=== PATIENT | female | born 1995 | race Hispanic/Latino ===

== ENCOUNTER 2016-10-02 02:42 | Emergency (ER) | payer OTHER ==
[~2016-10-02] VITALS: Ht 165.1 cm; Wt 104.5 kg
[2016-10-02 02:49] VITALS: BP 129/84; RESP 18; O2SAT 98
--- NOTE | 2016-10-02 02:54 | ED.REPORT ---
HPI-Ear Pain/Problem/FB Date of Service Oct 02, 2016 ED Provider: History of Present Illness: Healthy 21 year old female sneezed a few days ago and felt immediate pain in her left ear. Tonight some drainage and increasing pain. Nursing Notes Stated Complaint: BROKEN LEFT EAR DRUM Chief Complaint: ENT & Mouth Nursing Notes Reviewed: Yes Allergies: Coded Allergies: No Known Allergies (Verified Allergy, Unknown, 10/02/16) No Active Prescriptions or Reported Meds General Time Seen by MD: 02:54 Chief Complaint Ear problem left pain Hx Obtained From: Patient Onset Occurred: 3 days ago Context of Onset: Other (sneezing) Symptom Duration: Since onset Location: : Inner ear Quality: Dull Severity: Current: Moderate Severity: Maximum: Moderate Recent Healthcare: Recent doctor visit (seen in July for diarrhea) Past Medical History Past Medical History Notes: Nexplanon Past Medical History Bladder infection Pneumonia Previous miscarriage Past Surgical History Reports: Cholecystectomy, Tonsillectomy Smoking History Never Smoker Social History Alcohol Use: >5 per day Drug Use: Denies drug use Other Social History: Good social support, Local resident Occupation lives with Mom. 06/04/2016 Ambulatory Status Independent Review of Systems Basic Review of Systems Eyes: Vision NL Respiratory: No shortness of breath Cardiovascular: No chest pain, No dyspnea on exertion GI: No abdominal pain, No anorexia, No nausea, No vomiting : No dysuria, No frequency Hematologic: No bleeding Skin: No bruising Neurologic: NL mental status (no vestibular symptoms. Hearing intact), No weakness, No numbness Physical Exam Initial Vital Signs Vital Signs (First) Date Time Temp Pulse Resp B/P Pulse Ox O2 Delivery O2 Flow Rate FiO2 10/02/16 02:49 36.2 88 18 129/84 98 Room Air Initial VS: Reviewed Head / Eyes: Atraumatic, Normocephalic, PERRL Neck: Supple, Non-tender, Full range of motion Cardiovascular: Regular rate & rhythm Abdomen / GI: Soft Lymphatic: No lymphadenopathy Extremities: Vascular intact, Neuro intact, No swelling Skin: Warm Neurologic: Alert ENT: Atraumatic Left Ear / Mastoid: Positive: Fluid behind TM purulent, Tympanic memb perforated, Tympanic membrane bulging, Tympanic membrane red Nose: Negative: Discharge nasal bloody Sinus: Negative: Tender frontal L, Tender frontal R, Tender maxillary L Re-Eval/Medical Decision Med Decision/Clinical Course Bulging left ear drum with what looks like a small perforation. Purulent effusion noted. No signs of mastoiditis Cranial nerves intact No facial palsy. No signs of meningitis. Will rx with Augmentin, oflox otic, norco and close ENT follow up. Routine opiate warnings given. Discharge & Departure Primary Impression: Otitis media Otitis media type: suppurative Laterality: left Chronicity: acute Recurrence: not specified Spontaneous tympanic membrane rupture: with spontaneous rupture Qualified Code: H66.012 - Acute suppurative otitis media with spontaneous rupture of ear drum, left ear Additional Impression: Ruptured tympanic membrane Laterality: left Qualified Code: H72.92 - Unspecified perforation of tympanic membrane, left ear Disposition: Home Patient Instructions: Otitis Media (ED), Tympanic Membrane Perforation (ED) Additional Instructions: Augmentin twice daily for 10 days. Ofloxacin otic: 10 drops to your left ear twice daily for 7 days. [place] one to 2 every 6 hours as needed for severe pain. Do not drive or drink alcohol or consume acetaminophen while taking the [place]. I recommend that you have your ear rechecked by an ear nose and throat surgeon. Sometimes the perforations need to be repaired. I would also like you to be seen in follow-up by your primary care physician or by our referral clinic. Keep your ear canal dry. Read the after care instructions given. Return if any problems or any worsening symptoms. Referrals: NOPCP (PCP) Harpal nSowden MD [facility] Wes Bender DO Oct 02, 2016 02:54
[2016-10-02] MEDS ORDERED: _HYDROcodone/APAP 5-325 mg Tablet PO PRN (03:00)
[2016-10-02] MEDS ORDERED: Amoxicillin-Clav 875-125 mg Tablet PO ONE (03:00)
[2016-10-02] MEDS ORDERED: Ofloxacin 0.3% 10 mL Otic Solution LEFT_EAR SCH ×2 (03:00→03:15)
[2016-10-02 03:30] VITALS: BP 129/84; PULSE 88; RESP 18; O2SAT 98
== END 2016-10-02 03:31 | disposition home or self-care (01) ==
LOC: SED 02:42
DX: H66.012 Acute suppurative otitis media with spontaneous rupture of ear drum, left ear (principal)

== ENCOUNTER 2016-12-14 12:24 | Emergency (ER) | payer OTHER ==
[~2016-12-14] VITALS: Ht 165.1 cm; Wt 110.9 kg
[2016-12-14 12:40] VITALS: BP 133/77; PULSE 94; RESP 12; O2SAT 96
--- NOTE | 2016-12-14 12:56 | ED.REPORT ---
HPI-NVD Date of Service December 14, 2016 ED Provider: Laura Pineda History of Present Illness: nausea, vomiting and diarrhea gets hot and cold since Sunday. Sunday had oysters. friend also ate oysters and is sick also with same symptoms. primary care is no one. normally healthy. diarrhea is multiple times, more than vomiting. no meds. Nursing Notes Stated Complaint: POSSIBLE FOOD POISONING Chief Complaint: Female Abdominal Pain Nursing Notes Reviewed: Yes Allergies: Coded Allergies: No Known Allergies (Verified Allergy, Unknown, 10/02/16) No Active Prescriptions or Reported Meds General Time Seen by MD: 12:56 Chief Complaint Nausea, Vomiting, Diarrhea Hx Obtained From: Patient Onset Occurred: 3 days ago Symptom Duration: Since onset Past Medical History Past Medical History Notes: Nexplanon Past Medical History Bladder infection Pneumonia Previous miscarriage Denies: Asthma Past Surgical History Reports: Cholecystectomy, Tonsillectomy Smoking History Never Smoker Social History Alcohol Use: 1-3 per week Drug Use: Denies drug use Other Social History: Good social support, Local resident Occupation lives with Mom. 06/04/2016 work at [employer] 12/14/2016 Ambulatory Status Independent Review of Systems Basic Review of Systems Eyes: Vision NL, No discharge : No dysuria, No frequency Allergy / Immune: No allergy Psychiatric: Normal thought content Physical Exam Initial Vital Signs Vital Signs (First) Date Time Temp Pulse Resp B/P Pulse Ox O2 Delivery O2 Flow Rate FiO2 12/14/16 12:40 36.6 94 12 133/77 96 12/14/16 15:09 Room Air Initial VS: Reviewed, Vital signs normal Head / Eyes: Atraumatic, Normocephalic, PERRL ENT: Mucous membranes moist, Conjunctiva normal, No scleral icterus Neck: Supple, Non-tender, Full range of motion Respiratory: Breath sounds normal, Clear to auscultation, No respiratory distress Cardiovascular: Regular rate & rhythm, Heart sounds normal, Intact distal pulses Back: No CVA tenderness Lymphatic: No lymphadenopathy Extremities: Vascular intact, Neuro intact, No swelling, No tenderness Skin: Warm, Dry, No cyanosis Neurologic: Alert, Oriented, Nonfocal Psychiatric: Mood/affect normal, Behavior normal, Normal thought content General/Constitutional: Awake, Alert, No acute distress, Well appearing, Well developed, Well hydrated, Well nourished, Cooperative, Not toxic appearing Abdomen: Atraumatic, Soft, Non-tender Respiratory / Chest: Atraumatic, Breath sounds NL, Breath sounds = bilat, No respiratory distress Cardiovascular: Heart rate NL, Regular rhythm, Heart sounds NL, No gallop Back: Atraumatic, Inspection NL, Full range of motion, Painless range of motion Interpretation & Diagnostics Lab Results Interpretation Result Diagram: 12/14/16 1319 12/14/16 1319 Test 12/14/16 12:56 12/14/16 13:19 Urine Color Bloody (YELLOW) Urine Appearance Hazy (CLEAR,HAZY) Urine pH 6.0 (5.0-8.0) Urine Specific [place] 1.005 (1.003-1.035) Urine Protein Tracemg/dL (NEG,TRACE) Urine Glucose (UA) Negativemg/dL (NEGATIVE) Urine Ketones Negativemg/dL (NEGATIVE) Urine Occult Blood Large (NEGATIVE) Urine Nitrite Negative (NEGATIVE) Urine Bilirubin Negative (NEGATIVE) Urine Urobilinogen Normalmg/dL (NORMAL) Urine Leukocyte Esterase Trace (NEGATIVE) Urine RBC >50/hpf (0-2) Urine WBC 0-5/hpf (0-5) Urine Epithelial Cells Occasional/hpf (NONE-MOD) Urine Crystals None seen (NONE SEEN) Urine Bacteria Few/hpf (NONE-FEW) Urine Hyaline Casts None/lpf (NONE) Urine Granular Casts None seen (NONE SEEN) Urine Waxy Casts None seen (NONE SEEN) Urine Red Blood Cell Casts None seen (NONE SEEN) Urine White Blood Cell Casts None seen (NONE SEEN) Urine Mucus None seen (None Seen) Urine Trichomonas None seen (NONE SEEN) Urine Yeast None (NONE SEEN) Urinalysis Comment None Urine Culture Reflexed Indicated White Blood Count 7.9th/mm3 (3.8-10.1) Red Blood Count 4.15mil/mm3 (3.90-5.20) Hemoglobin 12.3g/dL (12.0-15.6) Hematocrit 35.9% (35.0-46.0) Mean Corpuscular Volume 86.5fL (81-100) Mean Corpuscular Hemoglobin 29.6pg (27.0-35.0) Mean Corpuscular Hemoglobin Concent 34.3% (32.0-37.0) Red Cell Distribution Width 12.9% (12.3-15.4) Platelet Count 272bil/L (150-400) Neutrophils (%) (Auto) 69.0% (40-74) Lymphocytes (%) (Auto) 23.8% (14-46) Monocytes (%) (Auto) 5.7% (4-12) Eosinophils (%) (Auto) 1.1% (0-5) Basophils (%) (Auto) 0.3% (0-3) Sodium Level 139mEq/L (134-144) Potassium Level 3.6mEq/L (3.5-5.2) Chloride Level 103mEq/L (97-108) Carbon Dioxide Level 22mmol/L (18-29) Blood Urea Nitrogen 10mg/dL (6-20) Creatinine 0.59mg/dL (0.57-1.00) Estimat Glomerular Filtration Rate 181mL/min (>59) Glucose Level 101mg/dL (60-99) Calcium Level 8.9mg/dL (8.5-10.1) Total Bilirubin 0.3mg/dL (0.0-1.2) Aspartate Amino Transf (AST/SGOT) 29U/L (0-50) Alanine Aminotransferase (ALT/SGPT) 24U/L (0-32) Alkaline Phosphatase 99U/L (25-150) Total Protein 7.5g/dL (6.4-8.4) Albumin 4.1g/dL (3.4-5.0) Hold Lau Top Tube Received (Received) Lab Results Interpretation: unable to provide a stool sample in the ER Re-Eval/Medical Decision Med Decision/Clinical Course 21 year old female presents to the ER for evualation of nausea, vomiting and diarrhea. Patient ate oysters on Sunday with symptoms starting shortly after. Some one else at the same function ate exactly the same and is sick with the same symptoms. Labs are normal, patient reporting feeling better after fluids. No sign of dehydration or pancreatitis. Discharge & Departure Impression: Primary Impression: Nausea vomiting and diarrhea Disposition: Home Patient Instructions: Acute Diarrhea (ED), Acute Nausea and Vomiting (ED) Additional Instructions: Your labs are normal. You have an appointment at [facility] on Sunday12/16/2016 at 1 pm. Please keep the appointment. Your labs are normal. The urine looks good. The x-ray looks good. You were unable to give a stool sample while in the ER. This may mean the "food poisoning" is resolving. Can use zofran 4 mg up to 2 times a day if needed for nausea /vomiting. A side effect of this medication is constipation. Please keep the appointment as scheduled. Referrals: [facility] EDSupervising Provider for APC: Kishan Trotter DO copies to: [facility] Laura Pineda December 14, 2016 12:56
[2016-12-14] MEDS ORDERED: Ondansetron 2 mg/mL 2 mL Inj IVPUSH ONE (13:05)
[2016-12-14] MEDS ORDERED: 0.9% Sodium Chloride 1,000 ML IV ONE (13:05)
[2016-12-14] MEDS ORDERED: Ketorolac 15 mg/mL Inj IVPUSH ONE (13:05)
[2016-12-14 13:31] LABS: BASOPHILS % (AUTO) 0.3 % (0-3); EOSINOPHILS % (AUTO) 1.1 % (0-5); MONOCYTES % (AUTO) 5.7 % (4-12); Mean Corpuscular Hemoglobin 29.6 pg (27.0-35.0); Mean Corpuscular Volume 86.5 fL (81-100); Platelet Count 272 bil/L (150-400)
[2016-12-14 13:40] LABS: APPEARANCE,URINE HAZY (CLEAR,HAZY); COLOR,URINE BLOODY (YELLOW)
[2016-12-14 13:41] LABS: OCCULT BLOOD,URINE LARGE (NEGATIVE); UROBILINOGEN,URINE NORMAL (NORMAL)
[2016-12-14 15:09] VITALS: BP 103/71; PULSE 71; RESP 16; O2SAT 97
--- NOTE | 2016-12-14 15:26 | DRSVH ---
PROCEDURE: X-RAY CHEST ONE VIEW, PORTABLE ([id number]) INDICATIONS: hurts to take a deep breath TECHNIQUE: One view of the chest was acquired. COMPARISON: [facility], TANIA, CHEST 2VW, 08/04/2012, 1:00. [facility], TANIA, CH EST 2VW, 10/19/2014, 2:41. [facility], TANIA, XR CHEST 2VW, 02/07/2016, 3:26. FINDINGS: Surgical changes and devices: None. Lungs and pleura: No pleural effusions or pneumothorax. Lungs are clear. Mediastinum: Mediastinal contours appear normal. Heart size is normal. Bones and chest wall: No suspicious bony lesions. Overlying soft tissues appear unremarkable. IMPRESSION: Stable chest. No acute cardiopulmonary process is evident. Dictated by: Damaso Watts M.D. on 12/14/2016 at 14:23 Approved by: Damaso Watts M.D. on 12/14/2016 at 14:24
[2016-12-14 16:07] VITALS: BP 103/71; PULSE 71; RESP 16; O2SAT 97
== END 2016-12-14 16:07 | disposition home or self-care (01) ==
LOC: SED 12:24
DX: R11.2 Nausea with vomiting, unspecified (principal); R19.7 Diarrhea, unspecified; Z90.49 Acquired absence of other specified parts of digestive tract
CPT/HCPCS: 36415; 71010; 80053; 81000; 81025; 85025; 87086; 87088; 90791; 96361; 96374; 96375; 99285; J1885; J2405; J7030

== ENCOUNTER 2017-03-20 19:08 | Emergency (ER) | payer OTHER ==
[~2017-03-20] VITALS: Ht 165.1 cm; Wt 104.5 kg
[2017-03-20 19:35] VITALS: BP 101/68; PULSE 82; RESP 16; O2SAT 99
--- NOTE | 2017-03-20 20:01 | ED.REPORT ---
HPI- Female Date of Service Mar 20, 2017 ED Provider: Corey Ramos MD A 22 year old female with a history of UTI, cholecystectomy and previous miscarriage is referred to the ED from Urgent Care due to possible . The pt was seen in Urgent Care today complaining of cramping abdominal pain, nausea and vomiting for three weeks. At that time, she reported a positive test two weeks prior. Her last known menstrual period was nine to ten weeks ago. The pt denies vaginal bleeding or discharge. She was referred to the ED for an ultrasound to rule out an ectopic . Nursing Notes Stated Complaint: ULTRASOUND Chief Complaint: Female Abdominal Pain Nursing Notes Reviewed: Yes Allergies: Coded Allergies: No Known Allergies (Verified Allergy, Unknown, 10/02/16) No Active Prescriptions or Reported Meds General Time Seen by MD: 19:54 Chief Complaint Abdominal pain... Hx Obtained From: Patient Arrived By: Walk-in Sudden in Onset?: No Onset Occurred: More than a week ago... Symptom Duration: Since onset Recent Healthcare: No recent hospitalization, Recent doctor visit Similar Sx Previous: No Past Medical History Past Medical History Notes: Ena Ulloa as of 03/2017 Past Medical History UTI Pneumonia Previous miscarriage Past Surgical History Reports: Cholecystectomy, Tonsillectomy Smoking History Never Smoker Social History Alcohol Use: 1-3 per week Drug Use: Denies drug use Other Social History: Good social support, Local resident Occupation lives with Mom. 06/04/2016 work at [employer] 12/14/2016 Ambulatory Status Independent Review of Systems Constitutional: Denies: Fever GI: Reports: Abdominal pain, Nausea, Vomiting, Denies: Constipation, Diarrhea Female: Denies: Vaginal bleeding - abnl, Vaginal discharge Musculoskeletal: Denies: Back pain, Neck pain Skin: Denies Rash Complete sys rev & neg: except as marked. Physical Exam Initial Vital Signs Vital Signs (First) Date Time Temp Pulse Resp B/P Pulse Ox O2 Delivery O2 Flow Rate FiO2 03/20/17 19:35 37.1 82 16 101/68 99 Room Air Initial VS: Reviewed Female Genitourinary: Exam deferred General/Constitutional: Awake, Alert Respiratory / Chest: Atraumatic, Breath sounds NL, Breath sounds = bilat, No respiratory distress Cardiovascular: Heart rate NL, Regular rhythm, Heart sounds NL Abdomen: Atraumatic, Soft, Non-tender, No distention Back: Atraumatic, Full range of motion Skin: Atraumatic, Color NL, No rash, Warm, Dry Head / Eyes: Atraumatic, Normocephalic, PERRL, EOMI ENT: Atraumatic, Airway patent, Mucous membranes moist Neck: Atraumatic, Supple, Full range of motion Upper Extremity / MS: Atraumatic, Full range of motion Lower Extremity / Pelvis / MS: Atraumatic, Full range of motion Neurologic: Oriented X3, Speech NL, No motor deficits, No sensory deficits Psychiatric: Affect NL, Mood NL Interpretation & Diagnostics Interpretation & Diagnostics: Pelvis/Transvaginal US: IUP consistent with 7 week 5 day old fetus normal heart tones Lab Results Interpretation Result Diagram: 03/20/17 2106 03/20/17 2106 Test 03/20/17 21:06 03/20/17 21:28 White Blood Count 9.8th/mm3 (3.8-10.1) Red Blood Count 4.27mil/mm3 (3.90-5.20) Hemoglobin 12.5g/dL (12.0-15.6) Hematocrit 36.8% (35.0-46.0) Mean Corpuscular Volume 86.2fL (81-100) Mean Corpuscular Hemoglobin 29.3pg (27.0-35.0) Mean Corpuscular Hemoglobin Concent 34.0% (32.0-37.0) Red Cell Distribution Width 13.7% (12.3-15.4) Platelet Count 258bil/L (150-400) Sodium Level 136mEq/L (134-144) Potassium Level 3.7mEq/L (3.5-5.2) Chloride Level 101mEq/L (97-108) Carbon Dioxide Level 19mmol/L (18-29) Blood Urea Nitrogen 8mg/dL (6-20) Creatinine 0.59mg/dL (0.57-1.00) Estimat Glomerular Filtration Rate 179mL/min (>59) Glucose Level 77mg/dL (60-99) Calcium Level 8.9mg/dL (8.5-10.1) Total Bilirubin 0.2mg/dL (0.0-1.2) Aspartate Amino Transf (AST/SGOT) 36U/L (0-50) Alanine Aminotransferase (ALT/SGPT) 37U/L (0-32) Alkaline Phosphatase 116U/L (25-150) Total Protein 7.5g/dL (6.4-8.4) Albumin 4.0g/dL (3.4-5.0) HCG Beta Subunit [id number]/mL Hold Lau Top Tube Received (Received) Urine Color Straw (YELLOW) Urine Appearance Clear (CLEAR,HAZY) Urine pH 5.5 (5.0-8.0) Urine Specific [place] 1.005 (1.003-1.035) Urine Protein Negativemg/dL (NEG,TRACE) Urine Glucose (UA) Negativemg/dL (NEGATIVE) Urine Ketones Negativemg/dL (NEGATIVE) Urine Occult Blood Trace (NEGATIVE) Urine Nitrite Negative (NEGATIVE) Urine Bilirubin Negative (NEGATIVE) Urine Urobilinogen Normalmg/dL (NORMAL) Urine Leukocyte Esterase Trace (NEGATIVE) Urine RBC 0-2/hpf (0-2) Urine WBC 0-5/hpf (0-5) Urine Epithelial Cells Many/hpf (NONE-MOD) Urine Crystals None seen (NONE SEEN) Urine Bacteria Few/hpf (NONE-FEW) Urine Hyaline Casts None/lpf (NONE) Urine Granular Casts None seen (NONE SEEN) Urine Waxy Casts None seen (NONE SEEN) Urine Red Blood Cell Casts None seen (NONE SEEN) Urine White Blood Cell Casts None seen (NONE SEEN) Urine Mucus None seen (None Seen) Urine Trichomonas None seen (NONE SEEN) Urine Yeast None (NONE SEEN) Urinalysis Comment None Urine Culture Reflexed Indicated Re-Eval/Medical Decision Med Decision/Clinical Course A 22 year old female with a history of UTI, cholecystectomy and previous miscarriage is referred to the ED from Urgent Care due to possible . The pt was seen in Urgent Care today complaining of cramping abdominal pain, nausea and vomiting for three weeks. At that time, she reported a positive test two weeks prior. Her last known menstrual period was nine to ten weeks ago. The pt denies vaginal bleeding or discharge. She was referred to the ED for an ultrasound to rule out an ectopic . Here in the emergency department the patient is afebrile, hemodynamically stable and in no apparent distress. Upper studies notable as below: CBC unremarkable CMP unremarkable Beta HCG 40,029 UA shows trace leukocyte esterase Negative nitrites Few bacteria Pelvis/Transvaginal US: IUP consistent with 7 week 5 day old fetus normal heart tones Presentation is not suggestive of ectopic . Patient tolerating PO with ease. She is advised to start taking a multivitamin and has been referred to women's health for follow-up. She may take Unisom and vitamin B6 for nausea. At this time, I feel that she is appropriate for discharge. Prior to discharge follow-up and return precautions were reviewed in detail with the patient who verbalized understanding and agreement with the plan. The patient was discharged in stable condition. Source of Hx: Old records Re-Evaluation/Progress : Time of Eval: 21:26 Patient Status: Condition improved Re-Evaluation/Progress Note: Pt rechecked, who is comfortable. US results are discussed. The diagnosis and plan for discharge are discussed. The pt understands and agrees with the plan. All questions are addressed at this time. Counseled Regarding: Diagnosis, Lab results, Need for follow-up, When/why to return to ED Discharge & Departure Impression: Primary Impression: Weeks of gestation: less than 8 weeks Qualified Code: Z3A.01 - Less than 8 weeks gestation of Additional Impressions: Abdominal cramping Vomiting Vomiting type: unspecified Vomiting Intractability: unspecified Nausea presence: unspecified Qualified Code: R11.10 - Vomiting, unspecified Disposition: Home Discharge Condition All VS Reviewed: Yes Condition: Stable Patient Instructions: Acute Abdominal Pain (ED), First Trimester (ED) Additional Instructions: Thank you for seeking care at the emergency room. Our primary goal today in the Emergency Department was to evaluate you for any life-threatening conditions. Your evaluation was reassuring. Your ultrasound showed an intrauterine at 7 weeks and 5 days. You should follow-up with your primary doctor in the next week. You should return to the Emergency Department immediately if you develop vaginal bleeding, vaginal discharge, fevers, vomiting, cough, shortness of breath, chest pain, lightheadedness, weakness or any other concerning signs or symptoms. Thank you for letting us partake in your care today. Referrals: [facility] Scribe Attestation Portions of this note were transcribed by Stan Meek. I, Dr. Ramos personally performed the history, physical exam and medical decision-making; I reviewed and confirmed the accuracy of the information in the transcribed note. copies to: [facility] Corey Ramos MD Mar 20, 2017 20:01 STAN MEEK Mar 20, 2017 20:32
[2017-03-20 21:14] LABS: Mean Corpuscular Hemoglobin 29.3 pg (27.0-35.0); Mean Corpuscular Volume 86.2 fL (81-100)
[2017-03-20 21:42] LABS: APPEARANCE,URINE CLEAR (CLEAR,HAZY); COLOR,URINE STRAW (YELLOW); OCCULT BLOOD,URINE TRACE (NEGATIVE); PH,URINE 5.5 (5.0-8.0); UROBILINOGEN,URINE NORMAL (NORMAL)
[2017-03-20 22:15] VITALS: BP 124/68; PULSE 78; RESP 16; O2SAT 98
--- NOTE | 2017-03-23 14:10 | DRSVH ---
CORRECTED PROCEDURE NAME AND ACCESSION/PLACER NUMBER ON 03/23/17 PROCEDURE: US OB<14 WKS+OB TRANSVAG INDICATIONS: IUP vs ectopic, abd pain, preg TECHNIQUE: Real-time scanning was performed of the pelvic organs, with image documentation. Additional endovagi nal scanning was necessary due to incomplete visualization of the adnexal and endometrial structures by transabdominal scanning. COMPARISON: None. FINDINGS: Transabdominal scanning: Limited scanning through the kidneys shows no hydronephrosis. No pathologi c free abdominal or pelvic fluid. Endovaginal scanning: Uterus: Uterus is normal in size at 9.9 x 5.9 x 7.6 cm. The endometrium is prominent because of a g estational sac and pole. Rif[place]-rump length indicates a 7 week five-day intrauterine gestation w ith estimated date of confinement of 11/01/2017. Heart rate is 156 beats per minute. Ovaries: There is a corpus luteum cyst in the left ovary. IMPRESSION: Intrauterine gestation, viable, estimated date of confinement 11/01/17. Dictated by: Michi Ramírez M.D. on 03/20/2017 at 21:19 Approved by: Michi Ramírez M.D. on 03/20/2017 at 21:23
== END 2017-03-20 22:05 | disposition home or self-care (01) ==
LOC: SED 19:08
DX: O21.0 Mild hyperemesis gravidarum (principal); R10.9 Unspecified abdominal pain; Z3A.01 Less than 8 weeks gestation of pregnancy

== ENCOUNTER 2017-04-27 10:14 | Emergency (ER) | payer OTHER ==
[~2017-04-27] VITALS: Ht 165.1 cm; Wt 105.9 kg
[2017-04-27 10:18] VITALS: BP 110/76; RESP 16; O2SAT 98
--- NOTE | 2017-04-27 11:36 | ED.REPORT ---
HPI-Dental/Mouth Prob Date of Service Apr 27, 2017 ED Provider: David Osorio PA-C Ana is otherwise healthy 22-year-old female to emergency Department with a chief complaint of a mouth infection. Patient first noted painful lesions on her lips 6 days ago. She was seen at a clinic on Sunday and prescribed Penicillin VK. She's been taking this as directed and complains of worsening symptoms. He is include more extensive lesions, painful throat, tender lymphadenopathy. She is unable to wear her bridge due to swelling of her gums. Reports subjective fever, chills. Patient is and complains of nausea and vomiting at baseline. She denies new medications. Nursing Notes Stated Complaint: MOUTH INFECTION Chief Complaint: ENT & Mouth Nursing Notes Reviewed: Yes Allergies: Coded Allergies: No Known Allergies (Verified Allergy, Unknown, 04/27/17) No Active Prescriptions or Reported Meds General Time Seen by MD: 11:08 Chief Complaint Oral sores Past Medical History Past Medical History Notes: Nexplanon as of 03/2017 Past Medical History UTI Pneumonia Previous miscarriage Past Surgical History Reports: Cholecystectomy, Tonsillectomy Smoking History Never Smoker Social History Alcohol Use: 1-3 per week Drug Use: Denies drug use Other Social History: Good social support, Local resident Occupation lives with Mom. 06/04/2016 work at [employer] 12/14/2016 Ambulatory Status Independent Review of Systems Negative unless stated otherwise in history of present illness Physical Exam General: Well appearing, well developed, well nourished, no acute distress. Head: Atraumatic, normocephalic. No mastoid tenderness. Eyes: No scleral icterus or injection. No discharge. PERRL. Vision grossly intact. Ears: Hearing grossly intact. Nose: Symmetrical, nares patent without discharge. Mouth/pharynx: Erythematous gums, small lesion in the midline anterior palate. Multiple small white plaques and ulcers on the buccal surface of the lips, crusting on the exterior lower lip. Patient has difficulty opening her mouth. Tonsils 2+ and symmetrical, uvula midline. Pharynx noninjected, no cobblestoning or discharge. Voice clear. No drooling. Neck: Slight tender anterior lymphadenopathy. Trachea midline. Cardiovascular: Tachycardic at 104 bpm and regular rhythm, without murmur, gallop or rub. Respiratory: No respiratory distress, no increased work of breathing. Speaks in complete sentences. Skin: Warm and dry. Neurological: Grossly nonfocal. Psychological: alert and oriented. Speech appropriate, linear and logical. Behavior appropriate. Initial Vital Signs Vital Signs (First) Date Time Temp Pulse Resp B/P Pulse Ox O2 Delivery O2 Flow Rate FiO2 04/27/17 10:18 36.7 107 16 110/76 98 Room Air Tachycardia Re-Eval/Medical Decision Med Decision/Clinical Course Otherwise healthy with 13 week 22-year-old eruptions particularly chief complaint of an infection in her mouth. Patient reports noticing sores in her mouth approximately 1 week ago. Seen in clinic and prescribed penicillin VK. Sores are proliferative despite this, patient went of sore throat, lymphadenopathy, subjective fever. No new medications other than penicillin. Physical examination reveals crusting on her lower lip as well as white plaques and ulcers on the anterior surface of both lips. Gums are edematous. No other rashes including palms and soles. Otherwise benign examination. Very mild tachycardia at 104 bpm is noted on physical examination. Discussed this case with Dr. Armas, who met with and examined the patient. We believe this is a viral stomatitis and are reassured against Hyatt-Sp syndrome, peritonsillar or retropharyngeal abscess, Pelon's angina, leukoplakia , thrush. Prescription for Atrovent mouthwash. [facility] Advised regarding primary care follow-up, provided emergency return precautions. Patient verbalized understanding of, and consent to, the plan. Discharge & Departure Primary Impression: Stomatitis Disposition: Home Discharge Condition All VS Reviewed: Yes Condition: Stable Additional Instructions: You have been diagnosed with stomatitis, a viral infection in your mouth. Stop taking the antibiotics are prescribed, as these are unlikely to provide benefit. I will write you a a prescription for Magic mouthwash, numbing medication which will provide some relief from the pain. Rinse and spit with this. I also recommend 1000 mg of Tylenol every 6 hours. Follow-up with your primary care provider if this is not resolved in about a week. Return to the emergency department for any new or worsening symptoms including difficulty breathing or swallowing. Referrals: [facility] (PCP) EDS[facility]vising Provider for APC: Stefan Armas MD, Seth PA-C Apr 27, 2017 11:36
[2017-04-27] MEDS ORDERED: Diphen-Lido-Mylanta 1:1:1 Susp 15 mL Syringe PO ONE (12:05)
[2017-04-27 12:36] VITALS: BP 121/79; PULSE 100; RESP 14; O2SAT 98
== END 2017-04-27 12:37 | disposition home or self-care (01) ==
LOC: SED 10:14
DX: K12.1 Other forms of stomatitis (principal)